=== PATIENT | male | born 1980 | race Caucasian/White ===

== ENCOUNTER 2022-05-19 19:45 | Emergency (ER) | payer OTHER ==
[2022-05-19 20:25] LABS: HEMOGLOBIN 13.2 gm/dl (14.0-17.5); RED BLOOD COUNT 4.17 M/UL (4.20-5.50); WHITE BLOOD COUNT 6.7 K/UL (4.5-11.0)
[2022-05-19 20:50] LABS: BUN/CREATININE RATIO 16 (0-10)
[2022-05-20] MEDS ORDERED: PREDNISONE 20 M20 MG PO (01:50)
== END 2022-05-20 01:56 | disposition home or self-care (01) ==
LOC: ER1 19:45
PROVIDERS: Physician Assistant Medical
DX: R07.89 Other chest pain (principal); I10 Essential (primary) hypertension; F17.290 Nicotine dependence, other tobacco product, uncomplicated; Z88.0 Allergy status to penicillin
CPT/HCPCS: 71045; 80053; 82550; 82553; 84484; 85025; 93005; 99285